=== PATIENT | female | born 1955 | race Caucasian/White ===

== ENCOUNTER → 2020-02-19 | Outpatient (CLI) | payer BC, OTHER | LOC: ULTRA 10:21 | PROVIDERS: ATTEND Family Medicine | DX: M25.561 Pain in right knee (principal) ==

== ENCOUNTER → 2020-12-08 | Outpatient (CLI) | payer BC, OTHER | LOC: ULTRA 09:55 | PROVIDERS: ATTEND Family Medicine | DX: N85.8 Other specified noninflammatory disorders of uterus (principal); R93.89 Abnormal findings on diagnostic imaging of other specified body structures; R05 Cough ==